=== PATIENT | female | born 1980 | race Caucasian/White ===

== ENCOUNTER 2017-07-10 05:17 | Inpatient (IN) | payer BC ==
--- NOTE | 2017-06-30 20:04 | GHP ---
[f rep st] PREOP HISTORY AND PHYSICAL DATE OF ADMISSION: 07/10/2017 PLANNED PROCEDURE: Primary low transverse section for low-lying placenta or marginal placenta previa. HISTORY OF PRESENT ILLNESS: The patient is a 36-year-old and will be a 37-year- old 2, para 2-0-0-1, who has been followed at [facility] [place] [facility] since the first trimester. She conceived this via in vitro fertilization. The has overall been uncomplicated. She had a normal echocardiogram, but was diagnosed with placenta previa at her anatomy ultrasound. The patient's most recent ultrasound on 06/21 showed either a marginal previa or placenta 5 mm away from the cervical os. The patient will have a repeat ultrasound done on 07/06 to further assess the placenta and talk about proceeding with section versus attempting labor. The patient has been properly consented for a primary low transverse section for a low-lying placenta with possible marginal previa. The risks and benefits have been extensively reviewed with the patient, and the patient has been properly consented. MEDICAL HISTORY: History of cervical dysplasia and gastroesophageal reflux disease. MEDICATIONS: vitamins, DHEA, folic acid, calcium, baby aspirin. SURGICAL HISTORY: Pilonidal cyst, x-ray of breast tissue removed from armpits, manual removal of placenta, and procedures related to IVF. ALLERGIES: Duricef, which causes heat rash. SOCIAL HISTORY: The patient is . She works in [employer]. She denies tobacco, alcohol, or drug use. FAMILY MEDICAL HISTORY: Noncontributory. OBSTETRICAL/GYNECOLOGIC HISTORY: Menarche at age 14. Periods every 25 days, lasting 5 days. She is a 2, para 1-0-0-1. In 02/2014, she had a spontaneous vaginal delivery of a 6-pound 13-ounce female infant at 38 weeks' gestation. She had a rapid labor, but the was complicated by the need for manual removal of the placenta. 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 On this , she had a normal echocardiogram and a diagnosis of placenta previa at 20 weeks. The placenta is either low-lying or a marginal previa at this time. The patient does have a remote history of an abnormal Pap smear. She had a colposcopy, which was negative. Re-Paps have been negative. She denies any history of sexually transmitted diseases besides HPV. REVIEW OF SYSTEMS: A 10-point review of systems is negative. There is good movement. No loss of fluid. No vaginal bleeding. PHYSICAL EXAMINATION: VITAL SIGNS: Stable. GENERAL APPEARANCE: Alert and oriented x3. HEART: Her heart rate was regular. LUNGS: Clear to auscultation bilaterally. NECK: Supple and mobile. ABDOMEN: Gravid, nondistended, nontender. EXTREMITIES: Revealed no calf tenderness or edema. PELVIC: Exam was deferred. The baby's heart tones were reassuring, and the infant is in a vertex presentation. The placenta on the last ultrasound was 5 mm away from the cervical os. LABORATORIES: Blood type O-positive. Antibody screen negative. Rubella immune. GBS negative. HBsAg negative. HIV negative. 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 However, her is negative. ASSESSMENT AND PLAN: A 36-year-old 1, para 1-0-0-1, who is scheduled for a primary low transverse section for placenta previa or a low- lying placenta. She will have a repeat ultrasound done 4 days before the C- section, and if the placenta is still low-lying, she will proceed with the surgery as planned. /[id number]/MODL MTDD
[2017-07-10] MEDS ORDERED: LR 500 ML IV ONE (05:26)
[2017-07-10] MEDS ORDERED: CITRIC ACID/SODIUM CITRATE 30 ML UDCUP PO ONE (05:26)
[2017-07-10] MEDS ORDERED: LR 1,000 ML IV SCH (05:30)
[2017-07-10 06:10] LABS: % IMMATURE GRANULYOCYTES 0.3 % (0.0-1.1); ABSOLUTE IMMATURE GRANULOCYTES 0.02 10^3/uL (0.00-0.10); ADD DIFF? NO; ADD MORPH? NO; ADD SCAN? NO; ATYPICAL LYMPHOCYTE FLAG 0 (0-99); FRAGMENT RBC FLAG 0 (0-99); HEMATOCRIT 41.1 % (38.0-47.0); HEMOGLOBIN 13.9 g/dL (12.6-16.3); LEFT SHIFT FLG 0 (0-99); LIPEMIA HEMOLYSIS FLAG 90 (0-99); MEAN CELL HEMOGLOBIN 31.6 pg (27.9-34.1); MEAN CELL HEMOGLOBIN CONCENTR. 33.8 g/dL (32.4-36.7); MEAN CELL VOLUME 93.4 fL (81.5-99.8); MEAN PLATELET VOLUME 11.8 fL (8.7-11.7); PLATELET CLUMPS FLAG 0 (0-99); PLATELET COUNT 164 10^3/uL (150-400)
[2017-07-10] MEDS ORDERED: CLINDAMYCIN 900 MG/DEXTROSE 50 ML IV ONE (06:30)
[2017-07-10] MEDS ORDERED: LIDOCAINE 1% 300 MG/30 ML SDV ONE (06:56)
[2017-07-10] MEDS ORDERED: HEMABATE 250 MCG/1 ML AMP IM ONE (06:57)
[2017-07-10] MEDS ORDERED: MISOPROSTOL 200 MCG TAB ONE (06:57)
[2017-07-10] MEDS ORDERED: OXYTOCIN 100 UNITS/10 ML VIAL ONE (07:02)
[2017-07-10] MEDS ORDERED: PHENYLEPHRINE 10 MG/ML SDV ONE (07:02)
[2017-07-10] MEDS ORDERED: fentaNYL 100 MCG/2 ML INJ ONE (07:04)
[2017-07-10] MEDS ORDERED: ONDANSETRON 4 MG/2 ML VIAL ONE (07:10)
[2017-07-10] MEDS ORDERED: BUPIVACAINE/DEXTROSE 7.5MG/ML 2 ML SPINAL AMP SP ONE (07:10)
[2017-07-10] MEDS ORDERED: SIMETHICONE 80 MG TAB CHEW PO PRN (08:45)
[2017-07-10] MEDS ORDERED: POLYETHYLENE GLYCOL 3350 17 GM PKT PO PRN (08:45)
[2017-07-10] MEDS ORDERED: MAGNESIUM HYDROXIDE 30 ML UDCUP PO PRN (08:45)
[2017-07-10] MEDS ORDERED: BISACODYL 10 MG SUPP PR PRN (08:45)
[2017-07-10] MEDS ORDERED: ACETAMINOPHEN 325 MG TAB PO PRN (08:45)
[2017-07-10] MEDS ORDERED: LACTULOSE 20 GM/30 ML UDCUP PO PRN (08:45)
--- NOTE | 2017-07-10 08:51 | POSTANESTH ---
Post Anesthetic Evaluation Cardiovascular Status: Normal, Stable Respiratory Status: Normal, Stable Level of Consciousness/Mental Status: Can Participate in Eval Pain Control: Adequate, Prn Tx Ordered Nausea/Vomiting Control: Adequate, Prn Tx Ordered Complications Possibly Related to Anesthesia: None Noted
[2017-07-10] MEDS ORDERED: fentaNYL 100 MCG/2 ML INJ IVP PRN (08:54)
[2017-07-10] MEDS ORDERED: PHENYLEPHRINE HCL 100 MCG/ML SYR IVP PRN (08:54)
[2017-07-10] MEDS ORDERED: ONDANSETRON 4 MG/2 ML VIAL IVP PRN (08:54)
[2017-07-10] MEDS ORDERED: MEPERIDINE 25 MG/ML SYR IVP PRN (08:54)
[2017-07-10] MEDS ORDERED: HYDROmorphONE/DILAUDID 1 MG/ML INJ IVP PRN (08:54)
[2017-07-10] MEDS ORDERED: HYDROCODONE/APAP 5/325 TAB PO PRN (08:54)
[2017-07-10] MEDS ORDERED: NALOXONE HCL 0.4 MG/ML INJ IVP PRN (08:54)
--- NOTE | 2017-07-10 08:54 | PREANESOB ---
Obstetric Pre-Anesthesia Info - General Info : 2 Para: 1 - Info Status: Full Term - Labor Status Section History: Primary Indications for Current Section: Placenta Previa Anesthesia Allergies/Adverse Reactions: Allergy/AdvReac Type Severity Reaction Status Date / Time Cephalosporins Allergy Rash Verified 02/28/14 01:37 [email or web address] Allergy Rash Verified 07/10/17 06:22 Home Medications: Medication Instructions Recorded Dha 1 tab PO DAILY 02/28/14 Folic Acid 1 tab PO DAILY 02/28/14 1 tab PO DAILY 02/28/14 Ibuprofen [Motrin (*)] 600 mg PO Q6 PRN #30 tab 03/02/14 Aspirin 1 tab PO DAILY 07/10/17 CALCIUM 1 tab PO DAILY 07/10/17 Visit Medications: Generic Name Dose Route Start Last Admin Trade Name Freq PRN Reason Stop Dose Admin Acetaminophen 325 - 650 mg 07/10/17 08:45 Tylenol PO 01/06/18 08:44 Q3HRS PRN Pain, Mild Hydrocodone Bitart/Acetaminophen 1 - 2 tab 07/10/17 08:45 [place] 5/325 PO 07/20/17 08:44 Q4HRS PRN Pain, Moderate Bisacodyl 10 mg 07/10/17 08:45 Dulcolax Rectal VA 01/06/18 08:44 DAILY PRN Constipation Protocol Docusate Sodium 100 mg 07/10/17 08:45 Colace PO 01/06/18 08:44 BID PRN Constipation Lactated Ringer's 1,000 mls @ 125 mls/hr 07/10/17 05:30 Lr IV 01/06/18 05:29 CONT CARMEN Ibuprofen 600 mg 07/10/17 08:45 Motrin PO 01/06/18 08:44 Q6HRS PRN Inflammation Ketorolac Tromethamine 30 mg 07/10/17 12:00 Toradol IVP 07/11/17 06:01 Q6HRS CARMEN Lactulose 20 gm 07/10/17 08:45 Cephulac PO 01/06/18 08:44 TID PRN Constipation Protocol Magnesium Hydroxide 30 ml 07/10/17 08:45 Milk Of Magnesia PO 01/06/18 08:44 DAILY PRN Constipation Protocol Polyethylene Glycol 17 gm 07/10/17 08:45 Miralax PO 01/06/18 08:44 DAILY PRN Constipation, patient prefers Protocol Senna/Docusate Sodium 1 - 2 tab 07/10/17 09:00 Senokot-S PO 01/06/18 08:59 BID CARMEN Protocol Simethicone 80 mg 07/10/17 08:45 Mylicon PO 01/06/18 08:44 .TIDMEALS AND HS PRN Gas Discontinued Medications Generic Name Dose Route Start Last Admin Trade Name Syed PRN Reason Stop Dose Admin Bupivacaine HCl/Dextrose Confirm 07/10/17 07:10 Marcaine Spinal Administered 07/10/17 07:11 Dose 2 ml SP .STK-MED ONE Carboprost Tromethamine Confirm 07/10/17 06:57 Hemabate Administered 07/10/17 06:58 Dose 250 mcg IM .STK-MED ONE Citric Acid/Sodium Citrate 30 ml 07/10/17 05:26 07/10/17 07:08 Bicitra PO 07/10/17 05:27 30 ml ONCALL ONE Administration Fentanyl Confirm 07/10/17 07:04 Sublimaze Administered 07/10/17 07:05 Dose 100 mcg .ROUTE .STK-MED ONE Lactated Ringer's 500 mls @ 0 mls/hr 07/10/17 05:26 Lr IV 07/10/17 05:27 ONCE ONE As Directed Clindamycin Phosphate/Dextrose 50 mls @ 100 mls/hr 07/10/17 06:30 07/10/17 07 :08 Cleocin 900 Mg (Premix) IV 07/10/17 06:59 50 mls ONCALL ONE Administration Lidocaine HCl Confirm 07/10/17 06:56 Lidocaine Hcl 1% Administered 07/10/17 06:57 Dose 300 mg .ROUTE .STK-MED ONE Misoprostol Confirm 07/10/17 06:57 Cytotec Administered 07/10/17 06:58 Dose 800 mcg .ROUTE .STK-MED ONE Morphine Sulfate Confirm 07/10/17 07:05 Morphine Sulfate Administered 07/10/17 07:06 Dose 10 mg .ROUTE .STK-MED ONE Ondansetron HCl Confirm 07/10/17 07:10 Zofran Administered 07/10/17 07:11 Dose 4 mg .ROUTE .STK-MED ONE Oxytocin Confirm 07/10/17 07:02 Pitocin Administered 07/10/17 07:03 Dose 100 units .ROUTE .STK-MED ONE Phenylephrine HCl Confirm 07/10/17 07:02 Neosynephrine Administered 07/10/17 07:03 Dose 10 mg .ROUTE .STK-MED ONE - Anesthesia History Response to Local Anesthetics: Normal Anesthesia & Operative History: No Prior Problems Family Anesthesia History: Negative - Social History Substance Use/Abuse: Denies - Focused Exam Height/Weight (Nursing): Height 170.18 cm Weight 74.843 kg Respiratory: lungs clear, normal breath sounds Cardiovascular: regular rate, rhythm ASA Status: II Labs: 07/10/17 05:35 Patient ABO/Rh O POSITIVE 07/10/17 05:35 - Plan Anesthetic Plan: sab Consent Signed and on Chart: Yes Patient/Guardian Understands and Agrees to Plan: Yes General Comments: preop eval on paper preop for timely start of surgery
--- NOTE | 2017-07-10 08:54 | OBDEL ---
Info Type: Primary Presentation at Delivery: Vertex L&D Analgesia/Anesthesia Type: Spinal GBS+: Yes Antibiotic Used for + GBS: Clindamycin Intrapartum Medications: Discontinued Medications Generic Name Dose Route Start Last Admin Trade Name Seyd PRN Reason Stop Dose Admin Citric Acid/Sodium Citrate 30 ml 07/10/17 05:26 07/10/17 07:08 Bicitra PO 07/10/17 05:27 30 ml ONCALL ONE Administration Clindamycin Phosphate/Dextrose 50 mls @ 100 mls/hr 07/10/17 06:30 07/10/17 07 :08 Cleocin 900 Mg (Premix) IV 07/10/17 06:59 50 mls ONCALL ONE Administration Indications for Delivery: Placenta Previa Operative Report - Delivery Pre-op Diagnoses: IUP at 38 4/7 weeks, placenta previa, family status complete, gbs positive Post-op Diagnoses: same plus nucal cord x 2 History of Prior Section: No Nulliparous Prior to Delivery: No Indications for Current Section: Placenta Previa Procedure: Scheduled, Low Transverse Surgeon: Linda Coates Emergency Medical Service Manager: Hortencia Miller Anesthesiologist: Daren Restrepo Complications: Nucal Cord (x2) Specimen(s)/Path: Fallopian Tube(s) EBL: [address] [place] [address] Delivery Date: 07/10/17 Delivery Time: 07:45 CRISTOBAL: 07/20/17 Gestational Age: 38 week(s) and 4 day(s) Sex of Infant: Male Score (1 Min): 8 Score (5 Min): 9 ICD10 Worksheet Patient Problems: Problems Problem Status Onset Normal spontaneous vaginal delivery Acute
[2017-07-10] MEDS ORDERED: KETOROLAC 30 MG/1 ML SDV ONE (09:09)
[2017-07-10] MEDS: KETOROLAC 30 MG/1 ML SDV IVP SCH ×3 (09:11→20:58)
--- NOTE | 2017-07-10 09:43 | GOP ---
[f rep st] OPERATIVE REPORT DATE OF OPERATION: 07/10/2017 SURGEON: Linda Coates DO DIRECTOR OPERATING: DO Princess Francisco CNM ANESTHESIA: Spinal. ANESTHESIOLOGIST: Daren Restrepo MD PREOPERATIVE DIAGNOSIS: 1. Intrauterine at 38-4/7 weeks' gestation. 2. Placenta previa. 3. Family status is complete. POSTOPERATIVE DIAGNOSIS: 1. Intrauterine at 38-4/7 weeks' gestation. 2. Placenta previa. 3. Family status is complete. 4. Nuchal cord x2. PROCEDURE PERFORMED: FINDINGS: 1. Viable male infant in the cephalic presentation delivered at 7:45 a.m. Apgars were 8 and 9. 2. Intact placenta with 3-vessel cord. 3. Normal ovaries, uterus, and tubes. SPECIMENS: Bilateral fallopian tubes. ESTIMATED BLOOD LOSS: 800 cc. INDICATIONS: The patient is 37-year-old, 2, para 1-0-0-1, who has received care at [facility] since first trimester. She conceived this via in vitro fertilization for male factor infertility. The patient's has been uncomplicated. She had a normal echocardiogram. She was diagnosed with placenta previa at her anatomy ultrasound. She has had a pe rsistent placenta previa and has been recommended that she have a delivery by between 38 an d 39 weeks. Risks and benefits of the procedure have been reviewed with the patient. The patient taylor s been properly consented. The patient states that her family status is likely complete; however, th ey do have 5 additional embryos, so she would like to have a tubal ligation performed and will concei ve by IVF again if indicated. DESCRIPTION OF PROCEDURE: The patient was taken to the operating room with intravenous fluids in liv ce. She was given 900 mg of clindamycin and seated on the operating room table where spinal anesthes ia was obtained. She was then repositioned in the dorsal supine position with a leftward tilt. Veno dynes were placed on her lower extremities, and a Love catheter was then placed. She was then prepp ed and draped in the normal sterile fashion. Anesthesia was assessed and found to be adequate. A Pf annenstiel skin incision was then made 2 fingerbreadths above the pubic symphysis. The incision was then carried through to the underlying layer of fascia with the Bovie. The fascia was then nicked in midline, and the fascial incision was extended laterally. The superior aspect of the fascial incisi on was then grasped with a Daquan, tented up, and the underlying rectus muscle dissected off bluntly with the Bovie. Attention was then turned to the inferior aspect of the fascial incision, which in a similar fashion was grasped with a Daquan, tented up, and the underlying rectus muscle dissected off . The rectus muscle was then in the midline. The peritoneum was then identified, tented u p, and entered sharply with the Metzenbaum scissors. The incision was extended superiorly and inferi lexi with excellent visualization of the bladder. The bladder blade was then inserted. The vesicout erine peritoneum was identified, tented up, and entered sharply with the Metzenbaum scissors. The in cision was extended laterally, and the bladder flap was created digitally. The bladder blade was the n reinserted. The uterus was then incised in a low-transverse fashion with the scalpel. The uterine incision was extended laterally. A large amount of clear fluid was noted. The baby's head was note d to be not well engaged within the pelvis. So the amniotic fluid was drained, and the 's head was then delivered through the incision without difficulty. Nuchal cord x2 was reduced at the incis ion. The remainder of the viable infant was delivered without difficulty. Delayed cord clamping x1 minute was performed. Cord was then clamped x2 and cut. Cord blood was obtained, and the was handed off to awaiting nurse practitioner. The intact placenta with 3-vessel cord delivere d without difficulty. Pitocin was then started. The uterus was noted to be firm. No excessive blee ding was noted. The uterus was then exteriorized and cleared of all clots and debris and wrapped in a moist laparotomy sponge. The bladder blade was then reinserted. The hysterotomy was closed with 0 Vicryl in a running locked fashion. A second 0 Vicryl stitch was used to imbricate the uterine inci lalo. Hemostasis was ensured. Attention was then turned to the patient's adnexa. Ovaries and tubes were unremarkable. The right fallopian tube was then grasped with a Awais and elevated up, and a defect was made in the avascular area of the mesosalpinx, and the vessels to the fallopian tube were then doubly suture ligated and transected. The salpingectomy was performed. The salpingectomy was p erformed on the contralateral side in a similar fashion. Hemostasis was ensured. Uterus was then re turned to the patient's abdomen. The gutters were cleared of all clots and debris. Hysterotomy paul ined hemostatic. The site of salpingectomy remained hemostatic. Peritoneum was reapproximated with 3-0 Vicryl in a running fashion. Rectus muscle was reapproximated with 2-0 Vicryl in a running fashi on. Fascia was closed with 0 Vicryl in a running fashion. Dimitri fascia was reapproximated with 3-0 Vicryl in a running fashion. Subcuticular tissue was reapproximated with 2-0 Vicryl in a running fa shion. The skin was then closed with krish. Sponge, lap, needle count were correct x2. Patient w as transported to recovery room in stable condition. /[id number]/MODL
[2017-07-10 16:13] VITALS: RESP 16
[2017-07-10] MEDS: SENNOSIDES/DOCUSATE SODIUM TAB PO SCH ×2 (17:52→20:58)
--- NOTE | 2017-07-10 18:18 | OBPP ---
Progress Note Assessment/Plan: Assessment: pod# 0 s/p PLTCS for placenta previa at 38 4/7 weeks breast feeding itching Plan: routine post care 07/10/17 18:16 Subjective/ Course: 07/10/17 18:17 patient is doing well. pain is well controlled. normal lochia. denies headache and changes in vision. having itching secondary to morphine. tolerating diet. ambulated to bath room. breast feeding is going well 07/10/17 18:18 Objective: 07/10/17 05:35 Patient ABO/Rh O POSITIVE 07/10/17 05:35 Temp Pulse Resp BP Pulse Ox 36.7 C 69 16 115/70 99 07/10/17 16:00 07/10/17 17:00 07/10/17 16:00 07/10/17 16:00 07/10/17 17:00 Physical Exam - Physical Exam Neck: non-tender, full range of motion, supple Respiratory: chest non-tender, lungs clear, normal breath sounds Cardiac/Chest: normal peripheral pulses, regular rate, rhythm Abdomen: normal bowel sounds, non-tender Extremities: normal range of motion, non-tender, normal inspection, normal capillary refill Skin: normal color, warm/dry Neuro/Psych: no motor/sensory deficits, alert, normal mood/affect, oriented x 3
[2017-07-11] MEDS: KETOROLAC 30 MG/1 ML SDV IVP SCH (03:47)
[2017-07-11] MEDS: HYDROCODONE/APAP 5/325 TAB PO PRN ×4 (08:20→22:34)
[2017-07-11] MEDS: SENNOSIDES/DOCUSATE SODIUM TAB PO SCH ×2 (08:20→22:34)
--- NOTE | 2017-07-11 10:28 | OBPP ---
Progress Note Assessment/Plan: Assessment: 37 y/o POD #1 s/p LTCS secondary to placenta previa doing well. Plan: Advance diet and po pain meds. support. Routine POC. 07/11/17 10:27 Subjective/ Course: 07/10/17 18:17 patient is doing well. pain is well controlled. normal lochia. denies headache and changes in vision. having itching secondary to morphine. tolerating diet. ambulated to bath room. breast feeding is going well 07/10/17 18:18 07/11/17 10:26 Pt is doing well this am. She is ambulating and voiding and has min lochia. Tatianna reg diet. Breast feeding is going well and baby is doing well. Objective: 07/11/17 05:58 Patient ABO/Rh O POSITIVE 07/10/17 05:35 Temp Pulse Resp BP Pulse Ox 36.3 C 78 16 103/70 93 07/11/17 08:00 07/11/17 08:00 07/11/17 08:00 07/11/17 08:00 07/11/17 08:00 Uterine Position/Fundal Height: Umbilicus -2 Uterine Tone: Firm Physical Exam - Physical Exam Respiratory: chest non-tender, lungs clear, normal breath sounds Cardiac/Chest: regular rate, rhythm Abdomen: normal bowel sounds, incision (c/d/i) Extremities: swelling (no), Johnny's sign (neg)
[2017-07-11] MEDS: IBUPROFEN 600 MG TAB PO PRN ×3 (10:46→22:34)
[2017-07-11] MEDS: IRON POLYSAC/IRON HEME 28 MG TAB PO SCH (10:47)
[2017-07-11] MEDS: DOCUSATE SODIUM 100 MG CAP PO PRN (22:34)
[2017-07-12] MEDS: HYDROCODONE/APAP 5/325 TAB PO PRN ×5 (02:31→19:50)
[2017-07-12 02:35] VITALS: O2SAT 94
[2017-07-12] MEDS: IBUPROFEN 600 MG TAB PO PRN ×4 (04:34→23:30)
[2017-07-12] MEDS: IRON POLYSAC/IRON HEME 28 MG TAB PO SCH (09:14)
[2017-07-12] MEDS: SENNOSIDES/DOCUSATE SODIUM TAB PO SCH ×2 (09:14→19:49)
[2017-07-12] MEDS: DOCUSATE SODIUM 100 MG CAP PO PRN ×2 (09:14→19:49)
--- NOTE | 2017-07-12 11:39 | OBPP ---
Progress Note Assessment/Plan: Assessment: 37 yo WF POD# 2 s/p 1CD (performed for placenta previa) and BTL (desired sterilization) doing overall quite well. Plan: Continue to advance diet and activity (encourage shower, use of abdominal binder during ambulation). Anticipate staple removal, steri-strip placement and discharge home tomorrow. 07/12/17 11:35 07/12/17 11:40 Subjective/ Course: 07/10/17 18:17 patient is doing well. pain is well controlled. normal lochia. denies headache and changes in vision. having itching secondary to morphine. tolerating diet. ambulated to bath room. breast feeding is going well 07/10/17 18:18 07/11/17 10:26 Pt is doing well this am. She is ambulating and voiding and has min lochia. Tatianna reg diet. Breast feeding is going well and baby is doing well. 07/12/17 11:37 Patient is doing well overall. Her activity remains limited, appropriately due to incisional pain. She denies significant uterine cramping. She reports minimal lochia. She is . She reports flatus. She is male . Objective: 07/11/17 05:58 Patient ABO/Rh O POSITIVE 07/10/17 05:35 Temp Pulse Resp BP Pulse Ox 36.3 C 68 16 108/70 94 07/12/17 02:32 07/12/17 02:32 07/12/17 02:32 07/12/17 02:32 07/12/17 02:32 Physical Exam - Physical Exam Neck: supple Respiratory: chest non-tender, lungs clear, normal breath sounds Cardiac/Chest: normal peripheral pulses, regular rate, rhythm Abdomen: normal bowel sounds Extremities: normal range of motion, non-tender, normal inspection Skin: normal color, warm/dry Neuro/Psych: no motor/sensory deficits, alert, normal mood/affect
[2017-07-12 20:00] VITALS: BP 113/74; PULSE 78; TEMP 97.5
[2017-07-13] MEDS: HYDROCODONE/APAP 5/325 TAB PO PRN ×2 (03:03→08:52)
[2017-07-13] MEDS: IBUPROFEN 600 MG TAB PO PRN ×2 (05:11→11:06)
[2017-07-13] MEDS: IRON POLYSAC/IRON HEME 28 MG TAB PO SCH (08:52)
[2017-07-13] MEDS: SENNOSIDES/DOCUSATE SODIUM TAB PO SCH (08:54)
--- NOTE | 2017-07-13 12:44 | PDDCSUM ---
Discharge Summary Discharge Summary: S) pt doing well, desires d/c home today; she denies any pain or heavy bleeding O) VSS Exam: head: normocephalic, atraumatic Heart: RRR, no murmur Chest: CTA-B Abd: soft, nontender Uterus: firm, @U-1, incision: c/d/i, krish to be removed prior to d/c Lochia: min rubra Extremities: neg edema, negative christin's sign neuro: grossly normal A) [id number] s/p Primary c/s P) d/c home today routine post op care pelvic rest S&S of infections discussed f/u in clinic in 1-2weeks
== END 2017-07-13 13:35 | disposition home or self-care (01) | DRG 767 ==
LOC: FLD 05:17 → FOB 09:30
PROVIDERS: ADMIT Obstetrics & Gynecology; ATTEND Obstetrics & Gynecology
DX: O44.23 Partial placenta previa NOS or without hemorrhage, third trimester (principal); O99.824 Streptococcus B carrier state complicating childbirth; Z37.0 Single live birth; O44.43 Low lying placenta NOS or without hemorrhage, third trimester; Z3A.38 38 weeks gestation of pregnancy; O69.82X0 Labor and delivery complicated by other cord entanglement, without compression, not applicable or unspecified
CPT/HCPCS: J1200; J1885; J2370; J2405; J2590; J3010